=== PATIENT | female | born 1955 | race Caucasian/White ===

== ENCOUNTER → 2019-10-12 08:53 | Outpatient (CLI) | payer BC, SELFPAY ==
--- NOTE | ~2019-10-12 | US_ITS ---
US right upper quadrant INDICATION: Diarrhea. Abdomen pain. PROCEDURE: Realtime right upper abdominal ultrasound. COMPARISON: Ultrasound dated 11/17/2015 FINDINGS: The pancreas is normal without focal mass or pancreatic ductal dilation. Liver echotexture is normal without focal mass or intrahepatic biliary dilatation. There is normal directional flow i n the portal vein. The gallbladder is normal without stones, gallbladder wall thickening or pericholecystic fluid. Comm on bile duct measures 4 mm. No sonographic Anderson's sign. There is a right renal cyst measuring 3.1 cm maximum dimension. IMPRESSION: 1: 3.1 cm right renal cyst. Reviewed, dictated and finalized at location A. [employer] IMPRESSION: 1: 3.1 cm right renal cyst.
== END ==
PROVIDERS: Visit Provider Student in an Organized Health Care Education/Training Program
DX: N28.1 Cyst of kidney, acquired (principal)
CPT/HCPCS: 76705

== ENCOUNTER 2021-03-27 10:25 | Outpatient (CLI) | payer BC, SELFPAY | END 2021-03-27 10:26 | LOC: ANHAUDIO 04-24 10:26 | PROVIDERS: PCP Student in an Organized Health Care Education/Training Program; Visit Provider Student in an Organized Health Care Education/Training Program | DX: H90.3 Sensorineural hearing loss, bilateral (principal) | CPT/HCPCS: 92557; 92567 ==

== ENCOUNTER → 2022-06-14 14:36 | Outpatient (CLI) | payer MEDICARE, OTHER, SELFPAY ==
--- NOTE | ~2022-06-14 | DEXA_ITS ---
Bone Density Report Name: JT SALAZAR Age: 67 Sex: Female Ethnicity: White Date of : 1955 Indication: postmenopausal; screening for osteoporosis; prior fracture; Referring Provider: Celia, Michael Study: Bone densitometry was performed. Exam Date: June 14, 2022 Accession number: [id number] Bone Density: Region BMD T-score Z-score Classification AP Spine (L1-L4) 0.832 -2.0 0.1 Osteopenia Femoral Neck (Left) 0.770 -0.7 1.0 Normal Total Hip (Left) 0.864 -0.6 0.8 Normal Femoral Neck (Right) 0.762 -0.8 1.0 Normal Total Hip (Right) 0.814 -1.0 0.4 Normal Total Hip Mean 0.839 -0.8 0.6 Normal World Health Organization criteria for BMD impression classify patients as: Normal (T-score at or above -1.0), Osteopenia (T-score between -1.0 and -2.5), or Osteoporosis (T-score at or below -2.5). 10-year Fracture Risk: FRAX not reported because: Treated for osteoporosis Clinical Information Provided by Patient: Has had a low trauma fracture Is being treated for osteoporosis Has used the following medications: Prolia (i.e. denosumab), Calcium Patient maximum height was 64 Menopause Age: 51 No regular weight bearing exercise Drinks caffeinated beverages Onset of menses at age 13 Number of children 3 Impression: The patient has low bone mass, based on the Total Spine T-score. The patient has risk factors, including: previous fracture. Discussion: It is important to ask patients whether they are taking their medications and to encourage continued and appropriate compliance with their osteoporosis therapies to reduce fracture risk. It is also important to review their risk factors and encourage appropriate calcium and vitamin D intakes, exercise, fall prevention and other lifestyle measures. Follow-Up: Consider a repeat BMD and Vertebral Fracture Assessment (VFA) exam in 2 years or sooner if medically necessary, to reassess this patient's status. Reported by: JAZZMINE on 06/14/2022 2:55:00 PM. Reviewed, dictated and finalized at location A. STEFFANIE
== END ==
PROVIDERS: PCP Student in an Organized Health Care Education/Training Program; Visit Provider Student in an Organized Health Care Education/Training Program
DX: M81.0 Age-related osteoporosis without current pathological fracture (principal); M85.88 Other specified disorders of bone density and structure, other site
CPT/HCPCS: 77080

== ENCOUNTER 2022-09-13 02:10 | Day surgery (SDC) | payer MEDICARE, OTHER, SELFPAY ==
[2022-08-30 13:35] VITALS: BMI 28.3
[2022-09-13 07:37] VITALS: BP 113/67; PULSE 104; RESP 18; TEMP 36.3; O2SAT 100; BMI 27.8
[2022-09-13] MEDS: LACTATED RINGERS 1,000 ML 150 ML IV CONT (08:03)
--- NOTE | 2022-09-13 08:19 | PM.HPGS ---
History of Present Illness History of Present Illness Consent: Risks, benefits, and alternatives have been discussed and questions answered. Patient agrees to proceed with procedure. Chief complaint: family hx colon ca Narrative: Cecily Nation is a 67 year old female Was referred for colon cancer screening. Her last colonoscopy was 5 years ago. She has a family history of colon cancer Review of Systems Review of Systems: All systems reviewed & are unremarkable except as noted in HPI and below PMFSH Family History Family History Other Family history of malignant neoplasm Social History Social History Smoking status: Never smoker Alcohol intake: current Alcohol use details: wine occasionally Substance use type: does not use Living arrangements: with family Spiritual care concerns: No Meds Home Medications and Allergies Home Medications Medication Instructions Recorded Confirmed Type calcium carbonate 600 mg-vitamin 1 tablet PO DAILY 08/30/22 09/13/22 History D3 5 mcg (200 unit) tablet multivit with 1 tablet PO DAILY 08/30/22 09/13/22 History iqqdajjy-azuz-OD-lutein 8 mg iron-400 mcg-300 mcg tablet (Centrum Silver Women) omega-3 fatty acids 1,000 mg PO DAILY 08/30/22 09/13/22 History omeprazole 40 mg capsule,delayed 40 mg PO DAILY 08/30/22 09/13/22 History release oxybutynin chloride 15 mg 15 mg PO DAILY 08/30/22 09/13/22 History tablet,extended release 24 hr Allergies Allergy/AdvReac Type Severity Reaction Status Date / Time Sulfa (Sulfonamide Allergy Rash Verified 09/13/22 07:46 Antibiotics) Vital Signs Vital Signs - 24 hr 09/13/22 07:37 Temperature 36.3 C L Pulse Rate 104 H Respiratory Rate 18 Blood Pressure 113/67 Pulse Oximetry 100 Oxygen Delivery Room Air Exam Const: General: alert Orientation/consciousness: patient oriented x3 Resp: Auscultation: clear to auscultation bilaterally Cardio: Rate: regular rate Rhythm: regular rhythm GI: GI Palp: Yes Soft to palpation and No Tenderness to palpation present (GI) Neuro: General: patient oriented x3 Assessment and Plan Assessment and plan (1) Colon cancer screening: Code(s): Z12.11 - Encounter for screening for malignant neoplasm of colon Status: Acute Assessment and Plan: Colonoscopy with possible biopsy or polypectomy or cautery or injection of substances.
--- NOTE | 2022-09-13 08:31 | WPDANESEPPF ---
Anes - Initial Pre Proc Eval Procedure: Operation Date: 09/13/22 09:00 Proposed Procedures p Screening Colonoscopy - Slava Jay MD Date/Time: 09/13/22 08:31 Surgeon: Slava Jay MD Pre Op Diagnosis: family hx colon ca Patient Data Age: 67 Gender: F Height: 1.63 m Weight: 73.5 kg Last Vital Signs Temp 97.4 F L 09/13/22 07:37 Pulse 104 H 09/13/22 07:37 Resp 18 09/13/22 07:37 BP 113/67 09/13/22 07:37 Pulse Ox 100 09/13/22 07:37 O2 Del Method Room Air 09/13/22 07:37 Allergies Allergy/AdvReac Type Severity Reaction Status Date / Time Sulfa (Sulfonamide Allergy Rash Verified 09/13/22 07:46 Antibiotics) Home Medications Medication Instructions Recorded Confirmed Type calcium carbonate 600 mg-vitamin 1 tablet PO DAILY 08/30/22 09/13/22 History D3 5 mcg (200 unit) tablet multivit with 1 tablet PO DAILY 08/30/22 09/13/22 History lextvjwt-vgpu-TA-lutein 8 mg iron-400 mcg-300 mcg tablet (Centrum Silver Women) omega-3 fatty acids 1,000 mg PO DAILY 08/30/22 09/13/22 History omeprazole 40 mg capsule,delayed 40 mg PO DAILY 08/30/22 09/13/22 History release oxybutynin chloride 15 mg 15 mg PO DAILY 08/30/22 09/13/22 History tablet,extended release 24 hr Patient hx anesthesia problems: none Family hx anesthesia problems: none Results Review: All pre-operative results and documents have been reviewed as part of the pre-operative evaluation. PENDING SALE TO [facility] Family History Family History Other Family history of malignant neoplasm Social History Social History Smoking status: Never smoker Alcohol intake: current Alcohol use details: wine occasionally Substance use type: does not use Living arrangements: with family Spiritual care concerns: No Anes - Eval Final PreProcedure Day of Procedure 09/13/22 08:31 Patient weight: normal Heart: regular rate and rhythm Lungs: clear to auscultation Airway: Mallampati scale class II Neurological: alert and oriented Last oral intake: >/= 8 hours ASA classification: II Emergent: no Anesthetic plan: proceed Anesthesia type and monitoring: general GIVS and standard monitoring Results Review: All pre-operative results and documents have been reviewed as part of the pre-operative evaluation. Informed Consent: The patient's anesthetic plan and its attendant risks and benefits were discussed with the patient/family/POA. Questions were solicited and answers provided to the satisfaction of the patient/family/POA.
[2022-09-13 09:17] VITALS: BP 83/48; PULSE 79; RESP 13; O2SAT 96
[2022-09-13 09:27] VITALS: BP 89/52; PULSE 79; RESP 13; O2SAT 97
[2022-09-13 09:37] VITALS: BP 92/55; PULSE 73; RESP 14; O2SAT 97
== END 2022-09-13 09:55 | disposition home or self-care (01) ==
PROVIDERS: PCP Student in an Organized Health Care Education/Training Program; Visit Provider Internal Medicine Gastroenterology
PROC: 0DJD8ZZ Inspection of Lower Intestinal Tract, Via Natural or Artificial Opening Endoscopic (ICD-10-PCS; CPT 45378; principal; 2022-09-13 09:00)
DX: Z12.11 Encounter for screening for malignant neoplasm of colon (principal); Z80.0 Family history of malignant neoplasm of digestive organs; F10.90 Alcohol use, unspecified, uncomplicated; Z79.899 Other long term (current) drug therapy
CPT/HCPCS: G0105; J2704; J7120